=== PATIENT | male | born 2000 | race Caucasian/White ===

== ENCOUNTER 2020-11-22 20:13 | Emergency (ER) | payer BC ==
[~2020-11-22] VITALS: Ht 172.7 cm; Wt 90.0 kg
[2020-11-22 20:29] VITALS: BP 141/93; Ht 172.7 cm; Wt 90.0 kg
[2020-11-22] MEDS ORDERED: VOLTAREN75 MG PO (21:27)
== END 2020-11-22 21:52 | disposition home or self-care (01) ==
LOC: D.ER 20:13
DX: S62.622A Displaced fracture of middle phalanx of right middle finger, initial encounter for closed fracture (principal); S69.91XA Unspecified injury of right wrist, hand and finger(s), initial encounter; Y04.2XXA Assault by strike against or bumped into by another person, initial encounter; Y93.9 Activity, unspecified; Y92.9 Unspecified place or not applicable

== ENCOUNTER → 2020-12-02 16:26 | Outpatient (CLI) | payer BC ==
[2020-11-22 20:29] VITALS: BMI 30.1
[~2020-12-02 16:26] MED LIST: VOLTAREN75 MG PO
== END | disposition home or self-care (01) ==
LOC: D.CT 11-29 08:30
PROVIDERS: ATTEND Clinical Nurse Specialist Family Health
DX: M79.641 Pain in right hand (principal)